=== PATIENT | male | born 1955 | race Caucasian/White ===

== ENCOUNTER → 2020-11-07 | Outpatient (CLI) | payer OTHER ==
--- NOTE | 2020-11-07 10:41 | KCIC ---
PROCEDURE: XR SHOULDER 2+ VIEWS STUDY DATE: 11/07/2020 CLINICAL INDICATION / HISTORY: Reason: BILATERAL SHOULDER PAIN / Spl. Instructions: / History: . TECHNIQUE: AP internal and external rotation views with a Y- view were obtained of the left than on t he right shoulders. COMPARISON: None FINDINGS: No fracture or dislocation is identified. The medial cortex of the proximal humeral shaft b ilaterally shows irregular cortical thickening, suggesting periosteal new bone formation. There are n o degenerative changes at the AC joints. There is infraclavicular osteophytic spurring present in the bilateral shoulders. No calcifications are seen in relation to the rotator cuff insertion. IMPRESSION: 1. Bilateral subacromial osteophytic spurring, at risk for rotator cuff pathology. 2. New bone formation along the medial proximal humeral diaphyses bilaterally. Query stress reactions . Consider correlation with bone scan, MRI, or follow-up radiographs following activity modification. Electronically signed by: Yamilka Carter MD (11/07/2020 10:38 AM) [id number]
== END ==
LOC: KCIC 09:33
PROVIDERS: ATTEND Physician Assistant Surgical
DX: M25.78 Osteophyte, vertebrae (principal)